=== PATIENT | male | born 1990 | race American Indian/Alaskan Native ===

== ENCOUNTER 2016-09-25 21:34 | Emergency (ER) | payer SELFPAY ==
[2016-09-25 21:59] VITALS: BP 125/75
[2016-09-25] MEDS ORDERED: ATIVAN IM ONE (22:15)
[2016-09-25] MEDS ORDERED: BENADRYL IM ONE (22:15)
[2016-09-25] MEDS ORDERED: GEODON IM ONE (22:15)
--- NOTE | 2016-09-25 22:24 | Emergency Department Report ---
ED Psych HPI - General Chief Complaint: Psych Stated Complaint: MH EVALUATION Time Seen by Provider: 09/25/16 22:05 Source: patient, RN/MD, EMS Mode of arrival: Ambulatory Limitations: No Limitations - History of Present Illness Initial Comments: 26-year-old male with a past medical history of schizophrenia presents to [facility] for aggressive behavior. Patient states he is being poisoned at the facility he is at and that he has a pending also. Patient admits to killing wants people and also killing anybody who muscle with him or his family. He denies hearing voices. No pain reported. Patient stating that he is feeling a little weak from all the blood they collected and refusing further blood draw. Patient has been in [facility] since September 22 for psychosis including hearing voices and seeing things without any medication for greater than 6 months as per [facility] paperwork. Patient was sent and voluntarily to psychiatric facility. Patient is currently in the facility for these reasons but yet was sent to the ED for the same. I also spoke to [facility] mental health director service and she contacted [facility] to discussed patient. Nurse also contacted me from [facility] to discuss patient Apparently patient complained of having a seizure this a.m. which was unwitnessed and then told [facility] staff that he felt like he was going to have another seizure. Apparently there is no history of seizures although family member reports a family history of brain tumors. Patient was sent for medical clearance due to complaint of having a seizure. - Related Data Previous Rx's Medication Instructions Recorded Last Taken Type Amoxicillin/K Clav Tab [Augmentin 1 tab PO Q12HR #10 tab 09/26/16 Unknown Rx 875 mg] Allergies Allergy/AdvReac Type Severity Reaction Status Date / Time aspirin Allergy Swelling Verified 12/27/15 18:05 bee venom (honey bee) Allergy Swelling Verified 12/27/15 18:05 ED Review of Systems ROS: Stated complaint: MH EVALUATION Other details as noted in HPI Comment: All other systems reviewed and negative Other: Constitutional: No fevers chills Eyes: No eye pain visual changes ENT: No ear pain or throat pain Neck: Denies pain Respiratory: Denies cough wheezing shortness of breath Cardiovascular: Denies chest pain, palpitations, syncope GI: Denies abdominal pain, nausea, vomiting, diarrhea : Denies dysuria, urinary frequency, or urgency Musculoskeletal: Denies back pain, joint swelling Skin: Denies rash, lesions, erythema Neurologic: Denies headache, numbness, weakness Psychiatric:as per hpi ED Past Medical Hx - Past Medical History Previous Medical History?: Yes Hx Psychiatric Treatment: Yes (schizophrenia) - Surgical History Past Surgical History?: Yes Additional Surgical History: right knee surgery - Social History Smoking Status: Current Every Day Smoker Substance Use Type: Alcohol, Marijuana, Prescribed - Medications Home Medications: Home Medications Medication Instructions Recorded Confirmed Last Taken Type Amoxicillin/K Clav Tab [Augmentin 1 tab PO Q12HR #10 tab 09/26/16 Unknown Rx 875 mg] ED Physical Exam - General Limitations: Other - Other Other exam information: General: No limitations, patient is alert in no acute distress Head exam: Atraumatic, normocephalic Eyes exam: Normal appearance, pupils equal reactive to light, extraocular movements intact ENT: Moist mucous membrane, normal oropharynx Neck exam: Normal inspection, full range of motion, no meningismus nontender Respiratory exam: Clear to auscultation bilateral, no wheezes, rales, crackles Cardiovascular: Normal rate and rhythm, normal heart sounds Abdomen: Soft, nondistended, and nontender, with normal bowel sounds, no rebound, or guarding Extremity: Full range of motion normal inspection no deformity Back: Normal Inspection, full range of motion, no tenderness Neurologic: Alert, oriented x3, cranial nerves intact, no motor or sensory deficit, trembling Psychiatric: Paranoid delusions Skin: Warm, dry, intact ED Course Vital Signs 09/25/16 21:54 Temperature 98.6 F Pulse Rate 80 Respiratory 18 Rate Blood Pressure 125/75 O2 Sat by Pulse 99 Oximetry - Reevaluation(s) Reevaluation #1: 09/26/16 02:28 Patient given Benadryl 50 mg in the ED as per NOV. Other meds not given and not necessary since patient was cooperative. Patient received 1 L of normal saline for mild hyponatremia. Apparently patient did mention to the nurse about feeling like he was going to have a seizure but no seizure activity noticed in the ED ED Medical Decision Making - Lab Data Result diagrams: 09/25/16 22:31 09/25/16 22:31 Lab Results 09/25/16 09/25/16 09/25/16 Range/Units 22:31 22:31 22:31 WBC 10.3 (4.5-11.0) K/mm3 RBC 4.46 (3.65-5.03) M/mm3 Hgb 14.0 (11.8-15.2) gm/dl Hct 41.7 (35.5-45.6) % MCV 94 (84-94) fl MCH 31 (28-32) pg MCHC 34 (32-34) % RDW 13.8 (13.2-15.2) % Plt Count 247 (140-440) K/mm3 Sodium 133 L (137-145) mmol/L Potassium 4.0 (3.6-5.0) mmol/L Chloride 94.2 L (98-107) mmol/L Carbon Dioxide 27 (22-30) mmol/L Anion Gap 16 mmol/L BUN 8 L (9-20) mg/dL Creatinine 1.1 (0.8-1.5) mg/dL Estimated GFR > 60 ml/min BUN/Creatinine Ratio 7.27 % Glucose 103 H (75-100) mg/dL Calcium 9.3 (8.4-10.2) mg/dL Magnesium (1.7-2.3) mg/dL Urine Color (Yellow) Urine Turbidity (Clear) Urine pH (5.0-7.0) Ur Specific [place] (1.003-1.030) Urine Protein (Negative) mg/dL Urine Glucose (UA) (Negative) mg/dL Urine Ketones (Negative) mg/dL Urine Blood (Negative) Urine Nitrite (Negative) Urine Bilirubin (Negative) Urine Urobilinogen (<2.0) mg/dL Ur Leukocyte Esterase (Negative) Urine WBC (Auto) (0.0-6.0) /HPF Urine RBC (Auto) (0.0-6.0) /HPF Urine Opiates Screen Urine Methadone Screen Ur Barbiturates Screen Ur Phencyclidine Scrn Ur Amphetamines Screen U Benzodiazepines Scrn Urine Cocaine Screen U Marijuana (THC) Screen Drugs of Abuse Note Plasma/Serum Alcohol < 0.01 (0-0.07) gm% 09/25/16 09/25/16 09/25/16 Range/Units 22:40 23:34 23:34 WBC (4.5-11.0) K/mm3 RBC (3.65-5.03) M/mm3 Hgb (11.8-15.2) gm/dl Hct (35.5-45.6) % MCV (84-94) fl MCH (28-32) pg MCHC (32-34) % RDW (13.2-15.2) % Plt Count (140-440) K/mm3 Sodium (137-145) mmol/L Potassium (3.6-5.0) mmol/L Chloride (98-107) mmol/L Carbon Dioxide (22-30) mmol/L Anion Gap mmol/L BUN (9-20) mg/dL Creatinine (0.8-1.5) mg/dL Estimated GFR ml/min BUN/Creatinine Ratio % Glucose (75-100) mg/dL Calcium (8.4-10.2) mg/dL Magnesium 2.0 (1.7-2.3) mg/dL Urine Color Colorless (Yellow) Urine Turbidity Clear (Clear) Urine pH 7.0 (5.0-7.0) Ur Specific [place] 1.002 L (1.003-1.030) Urine Protein <15 mg/dl (Negative) mg/dL Urine Glucose (UA) Neg (Negative) mg/dL Urine Ketones Neg (Negative) mg/dL Urine Blood Neg (Negative) Urine Nitrite Neg (Negative) Urine Bilirubin Neg (Negative) Urine Urobilinogen < 2.0 (<2.0) mg/dL Ur Leukocyte Esterase Neg (Negative) Urine WBC (Auto) < 1.0 (0.0-6.0) /HPF Urine RBC (Auto) < 1.0 (0.0-6.0) /HPF Urine Opiates Screen Presumptive negative Urine Methadone Screen Presumptive negative Ur Barbiturates Screen Presumptive negative Ur Phencyclidine Scrn Presumptive negative Ur Amphetamines Screen Presumptive negative U Benzodiazepines Scrn Presumptive negative Urine Cocaine Screen Presumptive negative U Marijuana (THC) Screen Presumptive negative Drugs of Abuse Note Disclamer Plasma/Serum Alcohol (0-0.07) gm% - Radiology Data Radiology results: report reviewed (CT head: Small nodular areas of mucosal thickening or small mucosal polyps in the maxillary sinus and mild past mucosal thickening of the ethmoid air cells. No acute intracranial findings) - Medical Decision Making Despite patient's claim for feeling like he is going to have a seizure and having a seizure that was all witnessed there are no signs of seizure activity during his ED observation. I suspect this is also part of his delusions. CT head unremarkable and lab work unremarkable with the exception of mild hyponatremia that was treated with 1 L of normal saline. [facility]. Patient was treated with antibiotics for incidental finding of mild sinusitis - Differential Diagnosis delusions, intracranial mass, seizures, electrolyte abnormality Critical Care Time: No Critical care attestation.: If time is entered above; I have spent that time in minutes in the direct care of this critically ill patient, excluding procedure time. ED Disposition Clinical Impression: Delusions Schizophrenia Qualifiers: Schizophrenia type: unspecified Qualified Code(s): F20.9 - Schizophrenia, unspecified Sinusitis Qualifiers: Sinusitis location: unspecified location Chronicity: unspecified Qualified Code (s): J32.9 - Chronic sinusitis, unspecified Disposition: DISCHARGED TO HOME OR SELFCARE Is pt being admited?: No Does the pt Need Aspirin: No Condition: Stable Instructions: Sinusitis (ED), Schizophrenia (ED) Prescriptions: Amoxicillin/K Clav Tab [Augmentin 875 mg] 1 tab PO Q12HR #10 tab Time of Disposition: 02:33
[2016-09-25 22:48] LABS: Hematocrit 41.7 % (35.5-45.6); Mean Corpuscular HGB Conc 34 % (32-34); Mean Corpuscular Hemoglobin 31 pg (28-32); Mean Corpuscular Volume 94 fl (84-94); Platelet Count 247 K/mm3 (140-440); Red Blood Count 4.46 M/mm3 (3.65-5.03); Red Cell Distribution Width 13.8 % (13.2-15.2); White Blood Count 10.3 K/mm3 (4.5-11.0)
[2016-09-25 23:13] LABS: BUN/Creatinine Ratio 7.27; Blood Urea Nitrogen 8 mg/dL (9-20); Calcium 9.3 mg/dL (8.4-10.2); Carbon Dioxide 27 mmol/L (22-30); Chloride 94.2 mmol/L (98-107); Glucose 103 mg/dL (75-100); Sodium 133 mmol/L (137-145)
--- NOTE | 2016-09-25 23:19 | Cat Scan Report ---
FINAL REPORT PROCEDURE: CT HEAD/BRAIN WO CON TECHNIQUE: Computerized tomography of the head was performed without contrast material. HISTORY: Possible seizure. Mental status change. Delusional, psychotic. COMPARISON: No prior studies are available for comparison. FINDINGS: Skull and scalp: Normal. Paranasal sinuses: Small nodular areas of mucosal thickening and or small mucosal polyps noted in the maxillary sinuses. Mild patchy mucosal thickening in the ethmoid air cells also noted. Ventricles and subarachnoid spaces: Normal. Cerebrum: No evidence of hemorrhage, acute infarction or mass . Cerebellum and brainstem: No evidence of hemorrhage, acute infarction or mass. Vasculature: Normal. Comments: None. IMPRESSION: 1. There is no CT evidence of intracranial hemorrhage or edema or infarct or shift or distinct acute finding involving the brain on this noncontrast scan 2. Small nodular areas of mucosal thickening or small mucosal polyps in the maxillary sinuses and mild patchy mucosal thickening in ethmoid air cells noted.
[2016-09-25 23:29] LABS: Anion Gap 16 mmol/L
[2016-09-26] MEDS: BENADRYL IM ONE ×2 (00:11→00:13)
[2016-09-26 00:49] LABS: Urine Drugs of Abuse Note Disclamer
[2016-09-26 00:59] LABS: Bilirubin,Urine NEG (Negative); Blood,Urine NEG (Negative); Ketones,Urine NEG (Negative); Leukocyte Esterase,Urine NEG (Negative); Nitrite,Urine NEG (Negative); Protein,Urine <15 mg/dL mg/dL (Negative); RBC,Urine < 1.0 /HPF (0.0-6.0); Urobilinogen,Urine < 2.0 mg/dL (<2.0); WBC,Urine < 1.0 /HPF (0.0-6.0)
[2016-09-26] MEDS ORDERED: NACL 0.9% 1000 ML 1,000 ML IV ONE (01:10)
== END 2016-09-26 02:49 | disposition home or self-care (01) ==
LOC: ED 21:34 → EEVIPCON 21:34 → ED 09-26 02:49
DX: F20.9 Schizophrenia, unspecified (principal); J32.9 Chronic sinusitis, unspecified; F22 Delusional disorders; R56.9 Unspecified convulsions; F12.10 Cannabis abuse, uncomplicated; F17.200 Nicotine dependence, unspecified, uncomplicated; Z88.6 Allergy status to analgesic agent; Z91.030 Bee allergy status
CPT/HCPCS: 36415; 70450; 80048; 81001; 83735; 85027; 96360; 96372; 99285; G0479; G0480; J1200; J7030; 80307; 80320